=== PATIENT | female | born 1945 | race Two or more races ===

== ENCOUNTER 2024-09-09 11:24 | Emergency (ER) | payer OTHER ==
[~2024-09-09] VITALS: Ht 157.5 cm; Wt 70.8 kg
[2024-09-09] MEDS ORDERED: GABAPENTIN400 MG PO (12:46)
[2024-09-09] MEDS ORDERED: ATENOLOL50 MG PO (12:46)
[2024-09-09] MEDS ORDERED: LISINOPRIL-HCT1 EACH PO (12:46)
[2024-09-09] MEDS ORDERED: EZETIMIBE10 MG PO (12:46)
[2024-09-09] MEDS ORDERED: METFORMIN HCL500 M4 PO (12:47)
[2024-09-09] MEDS ORDERED: ELIQUIS5 MG PO (12:47)
[2024-09-09] MEDS ORDERED: AMLODIPINE BESY10 MG PO (12:47)
[2024-09-09] MEDS ORDERED: PRAVASTATIN SOD40 MG PO (12:47)
[2024-09-09] MEDS ORDERED: KETOROLAC TROMETHAMINE 60 MG VIAL IM ONE ×2 (15:26→15:30)
== END 2024-09-09 16:47 | disposition home or self-care (01) ==
LOC: ER 11:24
DX: M25.552 Pain in left hip (principal); M25.562 Pain in left knee; Z85.89 Personal history of malignant neoplasm of other organs and systems; Z95.0 Presence of cardiac pacemaker; I10 Essential (primary) hypertension; I25.10 Atherosclerotic heart disease of native coronary artery without angina pectoris; W18.39XA Other fall on same level, initial encounter; Y93.89 Activity, other specified; Y92.018 Other place in single-family (private) house as the place of occurrence of the external cause
CPT/HCPCS: 70450; 73521; 73560; 96372; 99284; J1885